=== PATIENT | female | born 2000 ===

== ENCOUNTER 2020-01-31 12:53 | Emergency (ER) | payer BC ==
[2020-01-31 22:18] LABS: SARS-CoV-2 MS2 Positive; SARS-CoV-2 N Gene Negative; SARS-CoV-2 S Gene Negative; SARS-CoV-2 by NAA Not Detected (NotDetected); SARS-CoV-2 orf1ab Negative
== END 2020-01-31 13:32 | disposition home or self-care (01) ==
LOC: ERS 12:53
DX: R05 Cough (principal); Z20.828 Contact with and (suspected) exposure to other viral communicable diseases
CPT/HCPCS: 87635; 99283; U0003